=== PATIENT | male | born 1955 | race African-American/Black ===

== ENCOUNTER 2019-02-15 05:14 | Observation (INO) ==
[2019-02-15] MEDS ORDERED: ASPIRIN 325 MG TABLET PO STA (05:26)
[2019-02-15] MEDS ORDERED: NITROGLYCERIN SL 0.4 MG TABLET SL PRN (05:26)
[2019-02-15] MEDS ORDERED: ONDANSETRON 4 MG/2 ML VIAL IV STA (05:26)
[2019-02-15 05:52] LABS: Basophils # 0.1 10*3/uL (0.0-0.2); Eosinophils # 0.1 10*3/uL (0.0-0.87); Eosinophils % 1.9 % (0.00-10.9); Hematocrit 46.2 VOL% (42.0-52.0); Hemoglobin 14.5 GM/DL (14.0-18.0); Immature Granulocytes % 0.3 %; Immature Granulocytes Absolute 0.02 #; Lymphocytes % 34.6 % (21.2-54.2); Mean Corpuscular HGB Conc 31.4 GM/DL (32-36); Mean Corpuscular Volume 82.8 FL (87-102); Mean Platelet Volume 10.8 FL (9.6-12.0); Monocytes % 14.1 % (1.7-12.7); Neutrophils % 48.1 % (38.7-73.9); Platelet Count 290 T/CUMM (130-400); Red Blood Count 5.58 MC/CUMM (3.8-5.5); Red Cell Distribution Width 13.5 % (9.3-17.3); White Blood Count 5.7 T/CUMM (4-12)
[2019-02-15 06:10] LABS: Albumin 4.2 G/DL (3.4-5.0); Bilirubin,Total 0.8 MG/DL (0.2-1.0); Calcium 9.1 MG/DL (8.5-10.1); Osmolality,Calculated 277.5 MOS/KG (273-304); Total Protein 7.9 G/DL (6.4-8.3)
[2019-02-15] MEDS ORDERED: SPIRONOLACTONE 25 MG TABLET PO PRN (11:58)
[2019-02-15] MEDS: ALBUTEROL/IPRATROPIUM 3 ML NEB RESP TX SCH ×2 (13:10→19:20)
[2019-02-15] MEDS ORDERED: ENOXAPARIN 150 MG/ML SYRINGE SUBCUT ONE (16:51)
[2019-02-15] MEDS: GABAPENTIN 100 MG CAPSULE PO SCH ×2 (17:12→21:44)
[2019-02-15] MEDS: ACETAMINOPHEN 325 MG TABLET PO SCH ×2 (17:12→21:51)
[2019-02-15] MEDS ORDERED: ALUM/MAG/SIMETH/LIDO VISC 1:1 30 ML BOTTLE PO ONE (18:56)
[2019-02-15] MEDS ORDERED: SERTRALINE 25 MG TABLET PO ONE (19:01)
[2019-02-15] MEDS ORDERED: ALPRAZolam 0.25 MG TABLET PO SCH (21:00)
[2019-02-15] MEDS ORDERED: APIXABAN 5 MG TABLET PO SCH (21:00)
[2019-02-15 21:11] LABS: Barbiturates Screen,Urine Negative (Negative); Benzodiazepines Screen,Urine Negative (Negative); Cannabinoid Screen,Urine Negative (Negative); Opiate Screen,Urine Negative (Negative); Phencyclidine Screen,Urine Negative (Negative)
[2019-02-15] MEDS: BRIMONIDINE 0.2% OPH SOLN 5 ML BOTTLE BOTH EYES SCH (21:44)
[2019-02-15] MEDS: SERTRALINE 25 MG TABLET PO SCH (21:45)
[2019-02-15] MEDS: FAMOTIDINE 20 MG TABLET PO SCH (21:51)
[2019-02-15] MEDS ORDERED: SODIUM CHLORIDE 0.9% 1,000 ML IV SCH (22:00)
[2019-02-16] MEDS: ALBUTEROL/IPRATROPIUM 3 ML NEB RESP TX SCH ×2 (00:19→08:19)
[2019-02-16] MEDS: FAMOTIDINE 20 MG TABLET PO SCH ×2 (00:19→09:13)
[2019-02-16] MEDS: ACETAMINOPHEN 325 MG TABLET PO SCH ×2 (00:20→09:13)
[2019-02-16] MEDS: SERTRALINE 25 MG TABLET PO SCH (00:20)
[2019-02-16 04:52] LABS: Basophils # 0.1 10*3/uL (0.0-0.2); Eosinophils # 0.1 10*3/uL (0.0-0.87); Eosinophils % 1.5 % (0.00-10.9); Hematocrit 41.4 VOL% (42.0-52.0); Hemoglobin 12.9 GM/DL (14.0-18.0); Immature Granulocytes % 0.2 %; Immature Granulocytes Absolute 0.01 #; Lymphocytes # 1.8 10*3/uL (1.4-4.0); Mean Corpuscular HGB Conc 31.2 GM/DL (32-36); Mean Corpuscular Volume 83.3 FL (87-102); Mean Platelet Volume 10.3 FL (9.6-12.0); Monocytes % 14.2 % (1.7-12.7); Neutrophils % 52.1 % (38.7-73.9); Platelet Count 256 T/CUMM (130-400); Red Blood Count 4.97 MC/CUMM (3.8-5.5); Red Cell Distribution Width 13.3 % (9.3-17.3); White Blood Count 5.8 T/CUMM (4-12)
[2019-02-16 05:21] LABS: Albumin 3.8 G/DL (3.4-5.0); Bilirubin,Total 0.6 MG/DL (0.2-1.0); Osmolality,Calculated 276.7 MOS/KG (273-304); Total Protein 7.6 G/DL (6.4-8.3)
[2019-02-16] MEDS ORDERED: MAGNESIUM CITRATE 300 ML BOTTLE PO ONE (07:10)
[2019-02-16 07:40] VITALS: BP 124/81
[2019-02-16] MEDS ORDERED: CAPTOPRIL 25 MG TABLET PO SCH (09:00)
[2019-02-16] MEDS ORDERED: BIMATOPROST 0.01% OPH SOLN 2.5 ML BOTTLE BOTH EYES SCH (09:00)
[2019-02-16] MEDS ORDERED: APIXABAN 5 MG TABLET PO SCH (09:00)
[2019-02-16] MEDS ORDERED: PANTOPRAZOLE 40 MG TABLET PO SCH (09:00)
[2019-02-16] MEDS ORDERED: amLODIPine 10 MG TABLET PO SCH (09:00)
[2019-02-16] MEDS ORDERED: LOSARTAN 50 MG TABLET PO SCH (09:00)
[2019-02-16] MEDS ORDERED: IRBESARTAN 150 MG TABLET PO SCH (09:00)
[2019-02-16] MEDS ORDERED: AZITHROMYCIN 250 MG TABLET PO SCH (09:00)
[2019-02-16] MEDS: GABAPENTIN 100 MG CAPSULE PO SCH (09:09)
[2019-02-16] MEDS: BRIMONIDINE 0.2% OPH SOLN 5 ML BOTTLE BOTH EYES SCH (09:12)
== END 2019-02-16 10:28 | disposition home or self-care (01) ==
LOC: N.ED 05:14 → N.EDINP 05:14 → SUATTDRO 06:39 → N.5E 15:50
PROVIDERS: ADMIT Internal Medicine; ATTEND Family Medicine